=== PATIENT | male | born 1985 | race Caucasian/White ===

== ENCOUNTER 2017-11-20 16:12 | Observation (INO) | payer MEDICAID, OTHER ==
[~2017-11-20] VITALS: Ht 177.8 cm; Wt 133.1 kg
[2017-11-20 16:18] VITALS: BP 186/109; PULSE 141; RESP 16; TEMP 99.9; O2SAT 97
[2017-11-20] MEDS ORDERED: ZOLO25TA PO (16:35)
[2017-11-20 17:10] VITALS: O2SAT 98
--- NOTE | 2017-11-20 17:10 | PD ---
HPI Chief Complaint: GI Complaint Time Seen by Provider: 16:55 Travel History International Travel<30 days: No Contact w/Intl Traveler<30days: No Traveled to known affect area: No History of Present Illness HPI 32-year-old male complains of feeling shaky, nausea vomiting and insomnia. Patient has history of alcohol abuse. Patient states that he drinks about 1 pint of vodka a day. Patient stopped drinking 3 days ago. Patient states he tried to quit drinking. Patient has history anxiety and was put on Zoloft by his personal physician in [place] 3 weeks ago. Patient denies any other medical problem. Patient denies any illicit drug abuse. Patient denies any headache. Patient denies any chest pain or shortness of breath. Patient denies abdominal pain. Patient states that he has had intermittent nausea vomiting for the past 3 days. Patient denies any dysuria frequency. Patient denies any fever chills. Patient states that he abdominal pain a few days ago. Patient was seen with personal physician in [place] recently and was told that his liver function enzymes elevated. Patient states that he has insomnia for the past month. PFSH Past Medical History Anxiety: Yes Tetanus Vaccination: Unknown Influenza Vaccination: No Social History Alcohol Use: Yes (1 [place] DAILY) Tobacco Use: No Substance Use: No Allergies-Medications (Allergen,Severity, Reaction): Coded Allergies: No Known Allergies (Verified Allergy, Unknown, 11/20/17) Reported Meds & Prescriptions Reported Meds & Active Scripts Active Reported Zoloft (Sertraline HCl) 25 Mg Tab 25 Mg PO DAILY Review of Systems General / Constitutional: No: Fever Eyes: No: Visual changes HENT: No: Headaches Cardiovascular: No: Chest Pain or Discomfort Respiratory: No: Shortness of Breath Gastrointestinal: Positive: Nausea, Vomiting, No: Abdominal Pain Genitourinary: No: Dysuria Musculoskeletal: No: Pain Skin: No Rash Neurologic: No: Weakness Psychiatric: No: Depression Endocrine: No: Polydipsia Hematologic/Lymphatic: No: Easy Bruising Physical Exam Narrative GENERAL: Well-nourished, well-developed patient. SKIN: Focused skin assessment warm/dry. HEAD: Normocephalic. EYES: No scleral icterus. No injection or drainage. NECK: Supple, trachea midline. No JVD or lymphadenopathy. CARDIOVASCULAR: Mild tachycardia rate and rhythm without murmurs, gallops, or rubs. RESPIRATORY: Breath sounds equal bilaterally. No accessory muscle use. GASTROINTESTINAL: Abdomen soft, non-tender, nondistended. MUSCULOSKELETAL: No cyanosis, or edema. BACK: Nontender without obvious deformity. No CVA tenderness. Neurologic exam normal. Data Data Last Documented VS Vital Signs Date Time Temp Pulse Resp B/P (MAP) Pulse Ox O2 Delivery O2 Flow Rate FiO2 11/20/17 19:11 112 18 145/87 (106) 99 Room Air 11/20/17 16:18 99.9 Orders Orders Electrocardiogram (11/20/17 17:02) Complete Blood Count With Diff (11/20/17 17:02) Comprehensive Metabolic Panel (11/20/17 17:02) Prothrombin Time / Inr (Pt) (11/20/17 17:02) Act Partial Throm Time (Ptt) (11/20/17 17:02) Lipase (11/20/17 17:02) Urinalysis - C+S If Indicated (11/20/17 17:02) Ammonia (11/20/17 17:02) Ct Abd/Pel W Iv Contrast(Rout) (11/20/17 17:02) Iv Access Insert/Monitor (11/20/17 17:02) Ecg Monitoring (11/20/17 17:02) Oximetry (11/20/17 17:02) Drug Screen, Random Urine (11/20/17 17:02) Alcohol (Ethanol) (11/20/17 17:02) Sodium Chlor 0.9% 1000 Ml Inj (Ns 1000 M (11/20/17 17:15) Thiamine Inj (Thiamine Inj) (11/20/17 17:15) Lorazepam Inj (Ativan Inj) (11/20/17 17:15) Potassium Chloride (Kcl) (11/20/17 17:45) Potassium Chlor 20 Meq Premix (Kcl 20 Me (11/20/17 17:45) Lorazepam Inj (Ativan Inj) (11/20/17 18:00) Lorazepam Inj (Ativan Inj) (11/20/17 18:45) Sodium Chlor 0.9% 1000 Ml Inj (Ns 1000 M (11/20/17 18:45) Iohexol 350 Inj (Omnipaque 350 Inj) (11/20/17 18:46) Alcohol Withdrawal Asmt-Ciwa ONCE (11/20/17 19:38) Flumazenil Inj (Romazicon Inj) (11/20/17 19:45) Lorazepam (Ativan) (11/20/17 19:45) Lorazepam Inj (Ativan Inj) (11/20/17 19:45) Lorazepam (Ativan) (11/20/17 19:45) Lorazepam Inj (Ativan Inj) (11/20/17 19:45) Lorazepam Inj (Ativan Inj) (11/20/17 19:45) Lorazepam Inj (Ativan Inj) (11/20/17 19:45) Thiamine Inj (Thiamine Inj) (11/20/17 19:45) Labs Laboratory Tests Test 11/20/17 17:10 11/20/17 17:15 White Blood Count 7.7 TH/MM3 Red Blood Count 5.24 MIL/MM3 Hemoglobin 15.1 GM/DL Hematocrit 45.4 % Mean Corpuscular Volume 86.8 FL Mean Corpuscular Hemoglobin 28.8 PG Mean Corpuscular Hemoglobin Concent 33.2 % Red Cell Distribution Width 13.8 % Platelet Count 165 TH/MM3 Mean Platelet Volume 9.3 FL Neutrophils (%) (Auto) 62.9 % Lymphocytes (%) (Auto) 23.0 % Monocytes (%) (Auto) 12.5 % Eosinophils (%) (Auto) 0.4 % Basophils (%) (Auto) 1.2 % Neutrophils # (Auto) 4.8 TH/MM3 Lymphocytes # (Auto) 1.8 TH/MM3 Monocytes # (Auto) 1.0 TH/MM3 Eosinophils # (Auto) 0.0 TH/MM3 Basophils # (Auto) 0.1 TH/MM3 CBC Comment DIFF FINAL Differential Comment Prothrombin Time 10.6 SEC Prothromb Time International Ratio 1.0 RATIO Activated Partial Thromboplast Time 20.8 SEC Blood Urea Nitrogen 7 MG/DL Creatinine 1.30 MG/DL Random Glucose 130 MG/DL Total Protein 7.9 GM/DL Albumin 3.7 GM/DL Calcium Level 9.4 MG/DL Alkaline Phosphatase 84 U/L Aspartate Amino Transf (AST/SGOT) 140 U/L Alanine Aminotransferase (ALT/SGPT) 117 U/L Total Bilirubin 2.3 MG/DL Sodium Level 132 MEQ/L Potassium Level 2.7 MEQ/L Chloride Level 93 MEQ/L Carbon Dioxide Level 27.2 MEQ/L Anion Gap 12 MEQ/L Estimat Glomerular Filtration Rate 64 ML/MIN Lipase 216 U/L Ethyl Alcohol Level LESS THAN 3 MG/DL Ammonia 20 MCMOL/L [facility] Medical Decision Making Medical Screen Exam Complete: Yes Emergency Medical Condition: Yes Interpretation(s) 1857 PM. CBC within normal limits. Sodium 132. Potassium 2.7. Chloride 93. Total bili 2.3. AST 140. ALT 117. Alcohol less than 3. Differential Diagnosis Differential diagnosis including alcohol withdrawal symptoms, impending DT, electrolyte abnormality. Narrative Course 32-year-old male feeling shaky, nausea vomiting. History of EtOH abuse. Last drink was 3 days ago. Normal saline solution 1 L IV bolus. Normal saline solution 1 25 cc an hour. Thiamine 100 mg IV. Ativan 1 mg IV 3. KCl 40 mEq p.o. given. KCl 20 mg IV given. Diagnosis Primary Impression: Alcohol withdrawal Qualified Codes: F10.230 - Alcohol dependence with withdrawal, uncomplicated Additional Impressions: Hypokalemia Transaminitis Admitting Information Admitting Physician Requests: Admit Arik Latif MD Nov 20, 2017 17:10
[2017-11-20] MEDS ORDERED: LORazepam 2 MG/ML VIAL IV PUSH ONE ×3 (17:15→18:45)
[2017-11-20] MEDS ORDERED: THIAMINE INJ 100 MG in SODIUM CHLORIDE 0.9% INJ 100 ML IV ONE ×2 (17:15→19:45)
[2017-11-20 17:17] LABS: AUTOMATED NEUTROPHIL # 4.8 TH/MM3 (1.8-7.7); BASOPHIL # 0.1 TH/MM3 (0-0.2); BASOPHIL % 1.2 % (0.0-2.0); EOSINOPHIL % 0.4 % (0.0-4.0); HEMATOCRIT 45.4 % (39.0-51.0); HEMOGLOBIN 15.1 GM/DL (13.0-17.0); LYMPHOCYTE # 1.8 TH/MM3 (1.0-4.8); MEAN CELL VOLUME 86.8 FL (80.0-100.0); MEAN CORPUSCULAR HEMOGLOBIN 28.8 PG (27.0-34.0); MEAN CORPUSCULAR HGB CONC 33.2 % (32.0-36.0); MEAN PLATELET VOLUME 9.3 FL (7.0-11.0); MONO % 12.5 % (0.0-8.0); NEUT % 62.9 % (16.0-70.0); PLATELET COUNT 165 TH/MM3 (150-450); RED BLOOD COUNT 5.24 MIL/MM3 (4.50-5.90); RED CELL DISTRIBUTION WIDTH 13.8 % (11.6-17.2); WHITE BLOOD COUNT 7.7 TH/MM3 (4.0-11.0)
[2017-11-20] MEDS: SODIUM CHLOR 0.9% 1000 ML INJ 1,000 ML IV SCH (17:17)
[2017-11-20 17:29] LABS: ALBUMIN 3.7 GM/DL (3.4-5.0); BICARBONATE 27.2 MEQ/L (21.0-32.0); BLOOD UREA NITROGEN 7 MG/DL (7-18); CALCIUM 9.4 MG/DL (8.5-10.1); CHLORIDE 93 MEQ/L (98-107); GLUCOSE,RANDOM 130 MG/DL (74-106); PROTHROMBIN TIME - PATIENT 10.6 SEC (9.8-11.6); SODIUM (NA) 132 MEQ/L (136-145)
[2017-11-20 17:40] LABS: ALKALINE PHOSPHATASE 84 U/L (45-117); ALT (GPT) 117 U/L (12-78); AST (GOT) 140 U/L (15-37); GLOMERULAR FILTRATION RATE 64 ML/MIN (>89); TOTAL BILIRUBIN ADULT 2.3 MG/DL (0.2-1.0); TOTAL PROTEIN 7.9 GM/DL (6.4-8.2)
[2017-11-20] MEDS ORDERED: POTASSIUM CHLORIDE 20 MEQ CONTROLLED RELEASE TAB PO ONE (17:45)
[2017-11-20 17:58] VITALS: BP 140/95; PULSE 130; RESP 18; O2SAT 100
[2017-11-20] MEDS: POTASSIUM CHLOR 20 MEQ PREMIX 100 ML IV ONE ×2 (18:00→18:01)
[2017-11-20] MEDS ORDERED: SODIUM CHLOR 0.9% 1000 ML INJ 1,000 ML IV ONE (18:45)
[2017-11-20] MEDS ORDERED: IOHEXOL 350 MG/ML 10 ML VIAL (for RAD DIAG) IVCONTRAST ONE (18:46)
--- NOTE | 2017-11-20 19:10 | RADRPT ---
EXAM DATE/TIME: 11/20/2017 18:39 [facility] COMPARISON: No previous studies available for comparison. INDICATIONS : Vomiting. IV CONTRAST: 95 cc Omnipaque 350 (iohexol) IV ORAL CONTRAST: No oral contrast ingested. RADIATION DOSE: 22.21 CTDIvol (mGy) MEDICAL HISTORY : None SURGICAL HISTORY : None. ENCOUNTER: Initial ACUITY: 2 months PAIN SCALE: 6/10 LOCATION: pelvis abdomen TECHNIQUE: Volumetric scanning of the abdomen and pelvis was performed. Using automated exposure control and ad justment of the mA and/or kV according to patient size, radiation dose was kept as low as reasonably achievable to obtain optimal diagnostic quality images. DICOM format image data is available electro nically for review and comparison. FINDINGS: Linear scarring or atelectasis in the right middle lobe. No effusions. Severe infiltration of the liver with fat with liver enlarged to 27.2 cm in length. Spleen, adrenals, kidneys and pancreas are unremarkable. No free fluid. No bowel obstruction. No adenopathy. No pelvic masses. No acute bony abnormalities. CONCLUSION: 1. Severe hepatic steatosis with liver enlarged to 27.2 cm. No ascites. 2. Small hiatal hernia. Linear scarring right middle lobe. Eduardo Chávez MD on November 20, 2017 at 19:04 Board Certified Radiologist. This report was verified electronically.
[2017-11-20 19:11] VITALS: BP 145/87; PULSE 112; RESP 18; O2SAT 99
[2017-11-20] MEDS ORDERED: LORazepam 2 MG TAB PO PRN (19:45)
[2017-11-20] MEDS ORDERED: LORazepam 1 MG TAB PO PRN (19:45)
[2017-11-20] MEDS ORDERED: LORazepam 2 MG/ML VIAL IV PUSH PRN ×4 (19:45)
[2017-11-20] MEDS ORDERED: FLUMAZENIL 0.5 MG/5 ML VIAL IV PUSH PRN (19:45)
[2017-11-20] MEDS ORDERED: HALOPERIDOL LACTATE 5 MG/ML AMP IM PRN (20:00)
[2017-11-20] MEDS ORDERED: NALOXONE HCL 0.4 MG/ML AMP IV PUSH PRN (20:00)
[2017-11-20] MEDS ORDERED: SODIUM CHLORIDE 0.9% FLUSH 10 ML FLUSH IV FLUSH PRN (20:00)
[2017-11-20 20:27] VITALS: BP 126/75; PULSE 118; RESP 18
[2017-11-20] MEDS: SODIUM CHLORIDE 0.9% FLUSH 10 ML FLUSH IV FLUSH SCH (20:27)
[2017-11-20] MEDS: FAMOTIDINE 20 MG TAB PO SCH (20:31)
[2017-11-20 21:28] VITALS: BP 134/74; PULSE 104; RESP 18; O2SAT 99
--- NOTE | 2017-11-20 21:50 | EKG ---
Date Performed: 11/20/2017 Time Performed: 17:12:37 PTAGE: 32 years EKG: SINUS TACHYCARDIA Nonspecific T wave changes ABNORMAL ECG NO PREVIOUS TRACING DOCTOR: Blas Bhatia Interpretating Date/Time 11/20/2017 21:49:53
[2017-11-21] VITALS: BP 147/104; PULSE 111; RESP 20; TEMP 97.2; O2SAT 95
[2017-11-21] MEDS: SODIUM CHLOR 0.9% 1000 ML INJ 1,000 ML IV SCH ×3 (01:15→17:58)
[2017-11-21 04:00] VITALS: BP 133/86; PULSE 93; RESP 20; TEMP 98.1; O2SAT 96
[2017-11-21 06:39] LABS: AUTOMATED NEUTROPHIL # 2.6 TH/MM3 (1.8-7.7); BASOPHIL # 0.1 TH/MM3 (0-0.2); BASOPHIL % 1.2 % (0.0-2.0); EOSINOPHIL # 0.1 TH/MM3 (0-0.4); EOSINOPHIL % 1.4 % (0.0-4.0); HEMATOCRIT 37.7 % (39.0-51.0); HEMOGLOBIN 12.7 GM/DL (13.0-17.0); LYMPHOCYTE # 1.5 TH/MM3 (1.0-4.8); MEAN CELL VOLUME 87.3 FL (80.0-100.0); MEAN CORPUSCULAR HEMOGLOBIN 29.4 PG (27.0-34.0); MEAN CORPUSCULAR HGB CONC 33.7 % (32.0-36.0); MEAN PLATELET VOLUME 8.6 FL (7.0-11.0); MONO % 11.2 % (0.0-8.0); MONOCYTE # 0.5 TH/MM3 (0-0.9); NEUT % 55.2 % (16.0-70.0); PLATELET COUNT 131 TH/MM3 (150-450); RED BLOOD COUNT 4.32 MIL/MM3 (4.50-5.90); RED CELL DISTRIBUTION WIDTH 14.1 % (11.6-17.2); WHITE BLOOD COUNT 4.8 TH/MM3 (4.0-11.0)
[2017-11-21 06:54] LABS: CHLORIDE 98 MEQ/L (98-107); SODIUM (NA) 136 MEQ/L (136-145)
[2017-11-21 07:01] LABS: ALKALINE PHOSPHATASE 67 U/L (45-117); ALT (GPT) 91 U/L (12-78); AST (GOT) 103 U/L (15-37); BICARBONATE 26.9 MEQ/L (21.0-32.0); BLOOD UREA NITROGEN 7 MG/DL (7-18); CALCIUM 8.4 MG/DL (8.5-10.1); CREATININE 0.96 MG/DL (0.60-1.30); GLOMERULAR FILTRATION RATE 91 ML/MIN (>89); GLUCOSE,RANDOM 113 MG/DL (74-106); TOTAL BILIRUBIN ADULT 1.5 MG/DL (0.2-1.0); TOTAL PROTEIN 6.3 GM/DL (6.4-8.2)
[2017-11-21 08:00] VITALS: BP 159/101; PULSE 104; RESP 18; TEMP 98; O2SAT 95
[2017-11-21] MEDS ORDERED: POTASSIUM CHLORIDE 20 MEQ CONTROLLED RELEASE TAB PO ONE (08:30)
[2017-11-21] MEDS: SODIUM CHLORIDE 0.9% FLUSH 10 ML FLUSH IV FLUSH SCH ×2 (09:00→20:24)
[2017-11-21] MEDS: FOLIC ACID 1 MG TAB PO SCH (09:15)
[2017-11-21] MEDS: THIAMINE HCL 100 MG TAB PO SCH (09:15)
[2017-11-21] MEDS: FAMOTIDINE 20 MG TAB PO SCH ×2 (09:16→21:00)
[2017-11-21] MEDS: MULTIVITAMINS/MINERALS THERAPEUTIC TAB PO SCH (09:25)
[2017-11-21] MEDS: POTASSIUM CHLOR 20 MEQ PREMIX 100 ML IV SCH ×2 (11:17→11:34)
[2017-11-21 12:00] VITALS: BP 144/95; PULSE 94; RESP 18; TEMP 97.2; O2SAT 96
--- NOTE | 2017-11-21 15:38 | HHI.HP ---
[facility] No Primary Care Physician Admission Diagnosis Alcohol withdrawal. Hypokalemia. Transaminitis. Diagnoses: (1) Hypokalemia (2) Alcohol withdrawal (3) Transaminitis Chief Complaint: Alcohol withdrawal with nausea, vomiting, shakiness and insomnia Travel History International Travel<30 Days: No Contact w/Intl Traveler <30 Da: No Traveled to Known Affected Are: No History of Present Illness This is a 32-year-old male patient with a known medical history of anxiety and alcohol abuse who presented to the ED with complaints of nausea, vomiting and shakiness. Patient states that he does have a history of alcohol abuse, has been drinking 1 pint of vodka a day for the last 4 months due to situational changes in his life. Patient states he decided to stop drinking on Monday when he began to develop shakiness, chills, nausea, vomiting and insomnia. Patient states he also visited his PCP a few weeks ago in [place] for insomnia and was given Zoloft. Patient states he is visiting [place] due to his mom having terminal breast cancer. Denies any recent illness including fever, cough, shortness of breath. Denies any abdominal pain or diarrhea. Review of Systems Constitutional: COMPLAINS OF: Diaphoretic episodes, DENIES: Fever, Chills Eyes: DENIES: Blurred vision Respiratory: COMPLAINS OF: Shortness of breath, DENIES: Cough, Sputum production Cardiovascular: DENIES: Chest pain, Palpitations Neurologic: COMPLAINS OF: Tremor Psychiatric: COMPLAINS OF: Anxiety, Depression Except as stated in HPI: all other systems reviewed are Neg Past Family Social History Past Medical History Anxiety Alcohol abuse Past Surgical History Skin cancer removal on back. Reported Medications Active Reported Zoloft (Sertraline HCl) 25 Mg Tab 25 Mg PO DAILY Allergies: Coded Allergies: No Known Allergies (Verified Allergy, Unknown, 11/20/17) Active Ordered Medications Last Impressions Abdomen/Pelvis CT 11/20/17 2072 Signed Impressions: Service Date/Time: Monday, November 20, 2017 18:39 - CONCLUSION: 1. Severe hepatic steatosis with liver enlarged to 27.2 cm. No ascites. 2. Small hiatal hernia. Linear scarring right middle lobe. Eduardo Chávez MD Family History Maternal medical history significant for breast cancer. Father when he was very young suspected secondary to an [place] at the age of 40. Social History Denies any tobacco abuse. States he has been drinking 1 pint vodka daily for 4 months. Denies any illicit drug use. Physical Exam Vital Signs Vital Signs Date Time Temp Pulse Resp B/P (MAP) Pulse Ox O2 Delivery O2 Flow Rate FiO2 11/21/17 12:00 97.2 94 18 144/95 (111) 96 11/21/17 08:00 98.0 104 18 159/101 (120) 95 11/21/17 04:00 98.1 93 20 133/86 (102) 96 11/21/17 00:00 97.2 111 20 147/104 (118) 95 11/20/17 22:01 104 18 98 11/20/17 21:28 104 18 134/74 (94) 99 Room Air 11/20/17 20:27 118 18 126/75 (92) Room Air 11/20/17 19:11 112 18 145/87 (106) 99 Room Air 11/20/17 17:58 130 18 140/95 (110) 100 Room Air 11/20/17 17:10 98 Room Air 11/20/17 16:18 99.9 141 16 186/109 (134) 97 Physical Exam GENERAL: Well-developed, well-nourished patient in NAD. Mild tremors present. SKIN: Warm and dry. No rash. HEAD: Normocephalic. Atraumatic. EYES: Pupils equal and round. No scleral icterus. No injection or drainage. ENT: No nasal bleeding or discharge. Mucous membranes pink and moist. NECK: Supple. Trachea midline. CARDIOVASCULAR: Regular rate and rhythm. S1, S2 noted. No murmur appreciated. RESPIRATORY: No accessory muscle use. Clear to auscultation. Breath sounds equal bilaterally. GASTROINTESTINAL: Abdomen soft, non-tender, nondistended. Normoactive bowel sounds x4. MUSCULOSKELETAL: No obvious deformities. Extremities without clubbing, cyanosis , or edema. NEUROLOGICAL: Awake and alert. No obvious cranial nerve deficits. Motor grossly within normal limits. 5/5 muscle strength in bilateral upper and lower extremities. Normal speech. PSYCHIATRIC: Appropriate mood and affect; insight and judgment normal. Laboratory Laboratory Tests Test 11/20/17 17:10 11/20/17 17:15 11/21/17 06:17 White Blood Count 7.7 4.8 Red Blood Count 5.24 4.32 Hemoglobin 15.1 12.7 Hematocrit 45.4 37.7 Mean Corpuscular Volume 86.8 87.3 Mean Corpuscular Hemoglobin 28.8 29.4 Mean Corpuscular Hemoglobin Concent 33.2 33.7 Red Cell Distribution Width 13.8 14.1 Platelet Count 165 131 Mean Platelet Volume 9.3 8.6 Neutrophils (%) (Auto) 62.9 55.2 Lymphocytes (%) (Auto) 23.0 31.0 Monocytes (%) (Auto) 12.5 11.2 Eosinophils (%) (Auto) 0.4 1.4 Basophils (%) (Auto) 1.2 1.2 Neutrophils # (Auto) 4.8 2.6 Lymphocytes # (Auto) 1.8 1.5 Monocytes # (Auto) 1.0 0.5 Eosinophils # (Auto) 0.0 0.1 Basophils # (Auto) 0.1 0.1 CBC Comment DIFF FINAL DIFF FINAL Differential Comment Prothrombin Time 10.6 Prothromb Time International Ratio 1.0 Activated Partial Thromboplast Time 20.8 Blood Urea Nitrogen 7 7 Creatinine 1.30 0.96 Random Glucose 130 113 Total Protein 7.9 6.3 Albumin 3.7 3.0 Calcium Level 9.4 8.4 Alkaline Phosphatase 84 67 Aspartate Amino Transf (AST/SGOT) 140 103 Alanine Aminotransferase (ALT/SGPT) 117 91 Total Bilirubin 2.3 1.5 Sodium Level 132 136 Potassium Level 2.7 2.9 Chloride Level 93 98 Carbon Dioxide Level 27.2 26.9 Anion Gap 12 11 Estimat Glomerular Filtration Rate 64 91 Lipase 216 Ethyl Alcohol Level LESS THAN 3 Ammonia 20 Result Diagram: 11/21/17 0617 11/21/17 0617 Imaging Last Impressions Abdomen/Pelvis CT 11/20/17 1702 Signed Impressions: Service Date/Time: Monday, November 20, 2017 18:39 - CONCLUSION: 1. Severe hepatic steatosis with liver enlarged to 27.2 cm. No ascites. 2. Small hiatal hernia. Linear scarring right middle lobe. Eduardo Chávez MD Septic Shock Reassessment Septic shock perfusion: reassessment completed Caprini VTE Risk Assessment Caprini VTE Risk Assessment: No/Low Risk (score <= 1) Caprini Risk Assessment Model Point Value = 1 Point Value = 2 Point Value = 3 Point Value = 5 Age 41-60 Minor surgery BMI > 25 kg/m2 Swollen legs Varicose veins or History of unexplained or recurrent spontaneous Oral contraceptives or hormone replacement Sepsis (< 1 month) Serious lung disease, including pneumonia (< 1 month) Abnormal pulmonary function Acute myocardial infarction Congestive heart failure (< 1 month) History of inflammatory bowel disease Medical patient at bed rest Age 61-74 Arthroscopic surgery Major open surgery (> 45 min) Laparoscopic surgery (> 45 min) Malignancy Confined to bed (> 72 hours) Immobilizing plaster cast Central venous access Age >= 75 History of VTE Family history of VTE Factor V Leiden Prothrombin [id number] Lupus anticoagulant Anticardiolipin antibodies Elevated serum homocysteine Heparin-induced thrombocytopenia Other congenital or acquired thrombophilia Stroke (< 1 month) Elective arthroplasty Hip, pelvis, or leg fracture Acute spinal cord injury (< 1 month) Prophylaxis Regimen Total Risk Factor Score Risk Level Prophylaxis Regimen 0-1 Low Early ambulation 2 Moderate Order ONE of the following: *Sequential Compression Device (SCD) *Heparin 5000 units SQ BID 3-4 Higher Order ONE of the following medications: *Heparin 5000 units SQ TID *Enoxaparin/Lovenox 40 mg SQ daily (WT < 150 kg, CrCl > 30 mL/min) *Enoxaparin/Lovenox 30 mg SQ daily (WT < 150 kg, CrCl > 10-29 mL/min) *Enoxaparin/Lovenox 30 mg SQ BID (WT < 150 kg, CrCl > 30 mL/min) AND/OR *Sequential Compression Device (SCD) 5 or more Highest Order ONE of the following medications: *Heparin 5000 units SQ TID (Preferred with Epidurals) *Enoxaparin/Lovenox 40 mg SQ daily (WT < 150 kg, CrCl > 30 mL/min) *Enoxaparin/Lovenox 30 mg SQ daily (WT < 150 kg, CrCl > 10-29 mL/min) *Enoxaparin/Lovenox 30 mg SQ BID (WT < 150 kg, CrCl > 30 mL/min) AND *Sequential Compression Device (SCD) Assessment and Plan Problem List: (1) Alcohol withdrawal ICD Code: F10.239 - Alcohol dependence with withdrawal, unspecified Status: Acute Plan: Patient placed on CIWA protocol, monitor for any withdrawals. Seizure precautions. Ativan available if needed. Patient placed on multivitamin, folic acid and thiamine. Continue IV fluids. Was given 1 L NS bolus in ED. Haldol available as needed. Patient with mild hypertension, does not take anything at home. This is likely secondary to alcohol withdrawal. Continue to monitor trends. Clonidine available as needed. (2) Hypokalemia ICD Code: E87.6 - Hypokalemia Status: Acute Plan: Suspect secondary to alcohol abuse, nausea and vomiting. Potassium 2.7 on presentation. Status post replacement. Only improved to 2.9. Will order additional replacement. Continue to monitor. Check magnesium level. Continue to follow BMP. (3) Transaminitis ICD Code: R74.0 - Nonspecific elevation of levels of transaminase and lactic acid dehydrogenase [LDH] Status: Acute Plan: Suspect secondary to chronic alcohol abuse. Encouraged alcohol cessation. Continue to monitor. Mildly improving overnight. (4) Acute kidney injury ICD Code: N17.9 - Acute kidney failure, unspecified Plan: Suspect secondary to dehydration. Creatinine 1.3 on presentation, has improved to 0.96 with IVF. Continue for now. Monitor. Encourage PO intake. Problem Qualifiers (1) Alcohol withdrawal: Qualified Codes: F10.230 - Alcohol dependence with withdrawal, uncomplicated Malou Harrell November 21, 2017 15:38
[2017-11-21] MEDS ORDERED: cloNIDine HCL 0.1 MG TAB PO PRN (15:45)
[2017-11-21 16:00] VITALS: BP 140/103; PULSE 108; RESP 18; TEMP 97.3; O2SAT 96
[2017-11-21 16:33] LABS: MAGNESIUM 1.8 MG/DL (1.5-2.5)
[2017-11-21 20:00] VITALS: BP 137/87; PULSE 104; RESP 22; TEMP 97; O2SAT 96
[2017-11-21 21:27] LABS: CHOLESTEROL 144 MG/DL (120-200); TRIGLYCERIDES 157 MG/DL (42-150)
[2017-11-21 21:31] LABS: CHOLESTEROL/ HDL RATIO 4.67 RATIO; HDL CHOLESTEROL 30.8 MG/DL (40.0-60.0); LDL CHOLESTEROL 82 MG/DL (0-99)
[2017-11-22 00:20] VITALS: BP 132/78; PULSE 102; RESP 22; TEMP 97.1; O2SAT 96
[2017-11-22] MEDS: SODIUM CHLOR 0.9% 1000 ML INJ 1,000 ML IV SCH ×2 (01:15→09:07)
[2017-11-22 04:27] VITALS: BP 136/65; PULSE 72; RESP 22; TEMP 98.4; O2SAT 96
[2017-11-22 05:16] LABS: AUTOMATED NEUTROPHIL # 2.9 TH/MM3 (1.8-7.7); BASOPHIL # 0.1 TH/MM3 (0-0.2); BASOPHIL % 1.4 % (0.0-2.0); EOSINOPHIL # 0.1 TH/MM3 (0-0.4); EOSINOPHIL % 1.4 % (0.0-4.0); HEMOGLOBIN 12.8 GM/DL (13.0-17.0); LYMPH % 30.4 % (9.0-44.0); LYMPHOCYTE # 1.6 TH/MM3 (1.0-4.8); MEAN CELL VOLUME 87.3 FL (80.0-100.0); MEAN CORPUSCULAR HEMOGLOBIN 29.3 PG (27.0-34.0); MEAN CORPUSCULAR HGB CONC 33.5 % (32.0-36.0); MONO % 11.5 % (0.0-8.0); MONOCYTE # 0.6 TH/MM3 (0-0.9); NEUT % 55.3 % (16.0-70.0); PLATELET COUNT 129 TH/MM3 (150-450); RED BLOOD COUNT 4.36 MIL/MM3 (4.50-5.90); RED CELL DISTRIBUTION WIDTH 14.2 % (11.6-17.2); WHITE BLOOD COUNT 5.3 TH/MM3 (4.0-11.0)
[2017-11-22 05:19] LABS: CHLORIDE 103 MEQ/L (98-107); SODIUM (NA) 139 MEQ/L (136-145)
[2017-11-22 05:26] LABS: CALCIUM 8.7 MG/DL (8.5-10.1)
[2017-11-22 05:28] LABS: ALBUMIN 2.8 GM/DL (3.4-5.0); BICARBONATE 27.4 MEQ/L (21.0-32.0); GLUCOSE,RANDOM 125 MG/DL (74-106)
[2017-11-22 05:29] LABS: BLOOD UREA NITROGEN 5 MG/DL (7-18)
[2017-11-22 05:30] LABS: ALT (GPT) 92 U/L (12-78); AST (GOT) 94 U/L (15-37); CREATININE 0.85 MG/DL (0.60-1.30); GLOMERULAR FILTRATION RATE 105 ML/MIN (>89)
[2017-11-22 05:33] LABS: ALKALINE PHOSPHATASE 75 U/L (45-117)
[2017-11-22 07:50] VITALS: BP 144/97; PULSE 98; RESP 20; TEMP 98.1; O2SAT 98
[2017-11-22 08:48] LABS: BILIRUBIN, URINE NEG (NEG); BLOOD, URINE NEG (NEG); GLUCOSE,URINE NEG (NEG); KETONE, URINE NEG (NEG); NITRITE,URINE NEG (NEG); PH, URINE 6.5 (5.0-8.5); URINE COLOR YELLOW (YELLW/STRAW); URINE LEUKOCYTE ESTERASE NEG (NEG)
[2017-11-22] MEDS: SODIUM CHLORIDE 0.9% FLUSH 10 ML FLUSH IV FLUSH SCH (09:00)
[2017-11-22] MEDS: FAMOTIDINE 20 MG TAB PO SCH (09:07)
[2017-11-22] MEDS: FOLIC ACID 1 MG TAB PO SCH (09:07)
[2017-11-22] MEDS: MULTIVITAMINS/MINERALS THERAPEUTIC TAB PO SCH (09:07)
[2017-11-22] MEDS: THIAMINE HCL 100 MG TAB PO SCH (09:07)
[2017-11-22 09:08] LABS: RBC, URINE 0-3 /hpf (0-3)
[2017-11-22 09:09] LABS: SQUAMOUS EPITHELIAL CELL URINE 0-5 /hpf (0-5)
--- NOTE | 2017-11-22 09:22 | HHI.PR ---
Subjective Remarks Follow-up alcoholic withdrawal and hypokalemia. Patient seen and examined, lying in bed comfortably in no apparent distress. No tremors today. He relating well. No weakness. Mild hypokalemia 3.2, replacement ordered. Patient doing much better, all symptoms improved. Tolerating p.o. intake. Denies any vomiting, nausea or vomiting. Eating well. Vital signs are stable. Afebrile. Will discharge home today follow-up with PCP. Objective Vitals Vital Signs Date Time Temp Pulse Resp B/P (MAP) Pulse Ox O2 Delivery O2 Flow Rate FiO2 11/22/17 07:50 98.1 98 20 144/97 (113) 98 11/22/17 04:27 98.4 72 22 136/65 (88) 96 11/22/17 00:20 97.1 102 22 132/78 (96) 96 11/21/17 20:00 97.0 104 22 137/87 (104) 96 11/21/17 16:00 97.3 108 18 140/103 (115) 96 11/21/17 12:00 97.2 94 18 144/95 (111) 96 I/O 11/21/17 11/21/17 11/21/17 11/22/17 11/22/17 11/22/17 07:00 15:00 23:00 07:00 15:00 23:00 Intake Total 240 ml 2000 ml Output Total 375 ml 300 ml Balance -135 ml 1700 ml Intake Oral 240 ml 1000 ml IV Total 1000 ml Output Urine Total 375 ml 300 ml # Voids 1 # Bowel Movements 0 1 Result Diagram: 11/22/17 0447 11/22/17 0447 Imaging Last Impressions Abdomen/Pelvis CT 11/20/17 1702 Signed Impressions: Service Date/Time: Monday, November 20, 2017 18:39 - CONCLUSION: 1. Severe hepatic steatosis with liver enlarged to 27.2 cm. No ascites. 2. Small hiatal hernia. Linear scarring right middle lobe. Eduardo Chávez MD Objective Remarks GENERAL: Well-developed, well-nourished obese male patient in NAD. SKIN: Warm and dry. No rash. HEAD: Normocephalic. Atraumatic. EYES: Pupils equal and round. No scleral icterus. No injection or drainage. ENT: No nasal bleeding or discharge. Mucous membranes pink and moist. NECK: Supple. Trachea midline. CARDIOVASCULAR: Regular rate and rhythm. S1, S2 noted. No murmur appreciated. RESPIRATORY: No accessory muscle use. Clear to auscultation. Breath sounds equal bilaterally. GASTROINTESTINAL: Abdomen soft, non-tender, nondistended. Normoactive bowel sounds x4. MUSCULOSKELETAL: No obvious deformities. Extremities without clubbing, cyanosis , or edema. NEUROLOGICAL: Awake and alert. No obvious cranial nerve deficits. Motor grossly within normal limits. 5/5 muscle strength in bilateral upper and lower extremities. Normal speech. PSYCHIATRIC: Appropriate mood and affect; insight and judgment normal. A/P Problem List: (1) Alcohol withdrawal ICD Code: F10.239 - Alcohol dependence with withdrawal, unspecified Status: Acute Plan: Patient placed on CIWA protocol, monitor for any withdrawals. Seizure precautions. Ativan available if needed, patient has not needed this. Patient placed on multivitamin, folic acid and thiamine. Continue IV fluids. Was given 1 L NS bolus in ED. Haldol available as needed, patient has not needed this. Blood pressure stable today. No tremors today (2) Hypokalemia ICD Code: E87.6 - Hypokalemia Status: Acute Plan: Suspect secondary to alcohol abuse, nausea and vomiting. Potassium 2.7 on presentation. Status post replacement. Hypokalemia improved. Will order additional replacement for a few days after discharge. Continue to monitor. Magnesium stable. No cardiac events overnight. (3) Transaminitis ICD Code: R74.0 - Nonspecific elevation of levels of transaminase and lactic acid dehydrogenase [LDH] Status: Acute Plan: Suspect secondary to chronic alcohol abuse. Encouraged alcohol cessation. Improved. (4) Acute kidney injury ICD Code: N17.9 - Acute kidney failure, unspecified Plan: Suspect secondary to dehydration. Creatinine 1.3 on presentation, has improved to 0.96 with IVF. Problem Qualifiers (1) Alcohol withdrawal: Qualified Codes: F10.230 - Alcohol dependence with withdrawal, uncomplicated Mary Harrellmaya POOL November 22, 2017 09:22
[2017-11-22] MEDS ORDERED: POTASSIUM CHLORIDE 10 MEQ CONTROLLED RELEASE TAB PO ONE (09:30)
[2017-11-22 12:18] VITALS: BP 129/89; PULSE 109; RESP 20; TEMP 96.6; O2SAT 95
[2017-11-22] MEDS ORDERED: LORazepam 0.5 MG TAB PO ONE (13:30)
--- NOTE | 2017-11-22 13:38 | HHI.DCPOC ---
Discharge Care Plan Diagnosis: (1) Hypokalemia (2) Alcohol withdrawal (3) Transaminitis (4) Acute kidney injury Goals to Promote Your Health * To prevent worsening of your condition and complications * To maintain your health at the optimal level Directions to Meet Your Goals Take your medications as prescribed Follow your dietary instruction Follow activity as directed Keep your appointments as scheduled Take your immunizations and boosters as scheduled If your symptoms worsen call your PCP, if no PCP go to Urgent Care Center or Emergency Room Smoking is Dangerous to Your Health. Avoid second hand smoke Call the 24-hour hour crisis hotline for domestic abuse at Malou Harrell November 22, 2017 13:38
[2017-11-22] MEDS ORDERED: FAMO20TA2 PO (13:40)
[2017-11-22] MEDS ORDERED: THIA100 PO (13:40)
[2017-11-22] MEDS ORDERED: LORA-392 PO (13:40)
[2017-11-22] MEDS ORDERED: THERM PO (13:40)
[2017-11-22] MEDS ORDERED: POTA-163 PO (13:40)
[2017-11-22] MEDS ORDERED: FOLI1TAB6 PO (13:40)
[2017-11-22 14:59] LABS: HEMOGLOBIN A1C 6.4 % (4.3-6.0)
== END 2017-11-22 14:21 | disposition home or self-care (01) ==
LOC: PHED 16:12 → PHEDA 19:47 → PH3B 22:11
PROVIDERS: ADMIT Hospitalist; ATTEND Hospitalist
DX: F10.230 Alcohol dependence with withdrawal, uncomplicated (principal); I10 Essential (primary) hypertension; E87.6 Hypokalemia; R00.0 Tachycardia, unspecified; R94.31 Abnormal electrocardiogram [ECG] [EKG]; R74.0 Nonspecific elevation of levels of transaminase and lactic acid dehydrogenase [LDH]; K76.0 Fatty (change of) liver, not elsewhere classified; K44.9 Diaphragmatic hernia without obstruction or gangrene; N17.9 Acute kidney failure, unspecified; F41.9 Anxiety disorder, unspecified; Z79.899 Other long term (current) drug therapy; Z85.828 Personal history of other malignant neoplasm of skin
CPT/HCPCS: 74177; 80053; 80061; 80307; 81001; 82140; 83036; 83690; 83735; 84132; 85025; 85610; 85730; 93005; 96361; 96365; 96366; 96375; 96376; 99285; G0378; J2060; J3411; J3480; J7030; Q9967